=== PATIENT | male | born 1930 | race Caucasian/White ===

== ENCOUNTER 2017-01-11 09:19 | Outpatient (CLI) | payer OTHER, BC ==
--- NOTE | 2017-01-11 10:33 | DIAGNOSTIC IMAGING REPORT ---
PROCEDURE: US BILATERAL CAROTID DOPPLER INDICATION: FALLS;UNBALANCED TECHNIQUE: Color Doppler duplex imaging of the carotid and vertebral vessels. COMPARISON: None. FINDINGS: Moderate plaque bilaterally. Right carotid system: No significant stenosis visualized. The waveforms are normal. Left carotid system: No significant stenosis visualized. The waveforms are normal. Vertebral System: Antegrade vertebral artery flow bilaterally. Right common carotid artery peak systolic velocity 78 cm/second. Right internal carotid artery peak systolic velocity 57 cm/second. Right external carotid artery peak systolic velocity 65 cm/second. Right ypmuilri-ir-qctwid carotid artery ratio 0.73 Right vertebral artery peak systolic velocity 32 cm/second. Left common carotid artery peak systolic velocity 53 cm/second. Left internal carotid artery peak systolic velocity 76 cm/second. Left external carotid artery peak systolic velocity 64 cm/second. Left dxvlixqa-pb-uqtuqg carotid artery ratio 1.4 Left vertebral artery peak systolic velocity 54 cm/second. IMPRESSION: 1. No hemodynamically significant stenosis in either carotid system. 2. Antegrade vertebral artery flow bilaterally. Velocity criteria are extrapolated from diameter data as defined by the Society of Radiologists in Ultrasound Consensus Conference, Radiology 2003; 229; 340-346.
--- NOTE | 2017-01-11 10:33 | DIAGNOSTIC IMAGING REPORT ---
PROCEDURE: US BILATERAL CAROTID DOPPLER INDICATION: FALLS;UNBALANCED TECHNIQUE: Color Doppler duplex imaging of the carotid and vertebral vessels. COMPARISON: None. FINDINGS: Moderate plaque bilaterally. Right carotid system: No significant stenosis visualized. The waveforms are normal. Left carotid system: No significant stenosis visualized. The waveforms are normal. Vertebral System: Antegrade vertebral artery flow bilaterally. Right common carotid artery peak systolic velocity 78 cm/second. Right internal carotid artery peak systolic velocity 57 cm/second. Right external carotid artery peak systolic velocity 65 cm/second. Right olmwbuug-pc-hmzzbv carotid artery ratio 0.73 Right vertebral artery peak systolic velocity 32 cm/second. Left common carotid artery peak systolic velocity 53 cm/second. Left internal carotid artery peak systolic velocity 76 cm/second. Left external carotid artery peak systolic velocity 64 cm/second. Left vxyiaijz-an-tzklkk carotid artery ratio 1.4 Left vertebral artery peak systolic velocity 54 cm/second. IMPRESSION: 1. No hemodynamically significant stenosis in either carotid system. 2. Antegrade vertebral artery flow bilaterally. Velocity criteria are extrapolated from diameter data as defined by the Society of Radiologists in Ultrasound Consensus Conference, Radiology 2003; 229; 340-346.
--- NOTE | 2017-01-11 12:32 | DIAGNOSTIC IMAGING REPORT ---
PROCEDURE: MR BRAIN WITHOUT CONTRAST INDICATION: FALLS;UNBALANCED TECHNIQUE: Multiplanar multisequence MRI imaging of the brain without contrast. COMPARISON: None. FINDINGS: There is marked increase in the signal in the periventricular white matter and the brain stem. This is consistent with small-vessel ischemic disease. No restricted diffusion to suggest acute ischemia. No evidence of acute or chronic intraparenchymal or extra-axial hemorrhage. No mass, mass effect, or midline shift. Normal signal in the visible bones. The sinuses are normally aerated. Visible extracranial soft tissues including the orbits are normal. IMPRESSION: 1. Severe periventricular white matter ischemic disease.
== END 2017-01-11 23:00 ==
LOC: US SRH 09:19
DX: R90.82 White matter disease, unspecified (principal); R29.6 Repeated falls; R26.89 Other abnormalities of gait and mobility